=== PATIENT | female | born 1975 | race Caucasian/White ===

== ENCOUNTER 2016-11-30 19:19 | Emergency (ER) | payer OTHER ==
[~2016-11-30] VITALS: Ht 165.1 cm; Wt 72.3 kg
[~2016-11-30 19:19] MED LIST: ACET-171 PO; ALBU8.5H2 INHALATION; ALPR2TAB2 PO; CALC-3 PO; CYAN500 PO; DICY20TA33 PO; DIL4T PO; FENT1PAT7 TRANSDERM; GABA600T PO; HYDR50CA PO; IBUP200C11 PO; LEVO200T PO; LOPE2CAP PO; METO5SOL19 PO; OMEP20CA11 PO; ONDA8TAB7 PO; PRAZ2CAP2 PO; PROC-4 PO; PROM25TA14 PO; QUET200T PO
[2016-11-30 19:21] VITALS: BP 116/52; PULSE 56; RESP 17; O2SAT 100
--- NOTE | 2016-11-30 19:43 | ED.REPORT ---
HPI-Chest Pain 40 and Over Date of Service Nov 30, 2016 ED Provider: Dimitri Quinones DO Pt is a 41 year old female with a history of complex regional pain syndrome who presents to the ED via EMS complaining of intermittent and worsening chest pain onset 1 week ago. She c/o associated dizziness, fatigue, palpitations, nausea, and left lower extremity edema. Pt denies a history of blood clots in her left leg. The pt rates her pain as a 5/10, describing her chest pain as an "elephant sitting on [her] chest." Her last episode of chest pain was onset 1 hour ago, lasting 1 hour. Pt presented to urgent care with her symptoms and she was referred to the ED for further evaluation. Pt also expressed concern for a toenail on her left foot after dropping an object on it 2 months, stating that is is painful. Nursing Notes Stated Complaint: CHEST PAIN Chief Complaint: Chest Pain Nursing Notes Reviewed: Yes Allergies: Coded Allergies: morphine (Verified Allergy, Intermediate, 11/30/16) ms cotin tabs only IV okay Cephalexin Monohydrate (Verified Allergy, Unknown, HIVES, 11/30/16) HAS TAKEN AMOXICILLIN FINE cefepime (Verified Allergy, Unknown, NEUTROPENIA, 11/30/16) clindamycin (Verified Allergy, Unknown, THROAT CLOSURE, 11/30/16) fluconazole (Verified Allergy, Unknown, 11/30/16) Scheduled Calcium Carbonate/Vitamin D3 (Calcium 500+D Tablet Chew) 1 Each Tab.chew 1 EACH PO HS Cyanocobalamin (Vitamin B12) 1,000 Mcg Tablet 1,500 MCG PO DAILY Dicyclomine (Bentyl) 20 Mg Tablet 20 MG PO TID Fentanyl 25 mcg/hr Patch (Fentanyl 25 mcg/hr Patch) 1 Each Patch.td72 1 PATCH TRANSDERM Q3D Gabapentin (Neurontin) 600 Mg Tablet 2 TAB PO TID Hydromorphone (Dilaudid) 4 Mg Tablet 4 MG PO QID Ibuprofen (Advil) 200 Mg Capsule 800 MG PO TID Levothyroxine (Synthroid) 200 Mcg Tablet 400 MCG PO DAILY Metoclopramide (Metoclopramide) 5 Mg/5 Ml Solution 10 MG PO QID Omeprazole (Omeprazole) 20 Mg Capsule.dr 40 MG PO BID Ondansetron ODT (Zofran ODT) 8 Mg Tab.rapdis 8 MG PO QID Prazosin (Prazosin) 2 Mg Capsule 2 MG PO HS Prochlorperazine Maleate (Compazine) 10 Mg Tablet 10 MG PO QID Quetiapine Fumarate (Seroquel) 200 Mg Tablet 200 MG PO HS Scheduled PRN Acetaminophen (Acetaminophen) 500 Mg Tablet 1,000 MG PO Q6H PRN PRN For Pain Albuterol HFA (Proair HFA) 8.5 Gm Hfa.aer.ad 2 PUFFS INHALATION Q4H PRN PRN For Wheezing Alprazolam (Xanax) 2 Mg Tablet 2 MG PO HS PRN PRN For Anxiety Hydroxyzine Pamoate (Vistaril) 50 Mg Capsule 50 MG PO HS PRN PRN For Insomnia Loperamide (Loperamide) 2 Mg Capsule 4 MG PO Q4H PRN PRN For Diarrhea or Loose Stool Promethazine (Promethazine) 25 Mg Tablet 25 MG PO Q6H PRN PRN For Nausea General Time Seen by MD: 19:43 Chief Complaint Chest pain Hx Obtained From: Patient, EMS Arrived By: Ambulance Sudden in Onset?: No Onset Occurred: 1 week ago Symptom Duration: Since onset Quality: Painful Radiation: : Does not radiate Migration/Movement: Reports: None Severity: Current: Moderate Severity: Maximum: Moderate Recent Healthcare: Recent doctor visit Similar Sx Previous: No Past Medical History Past Medical History Notes: GI Dr. Irving Cannon at the [facility] [phone] Last admitted April 22 for COPD exacerbation, irritable bowel and chronic abdominal pain he abdomen and pelvis at that time feel decreased extension of colitis compared to March 2015 High utilizer of health care GHISLAINE profile reviewed Past Medical History IBS Colitis Severe PTSD Anxiety Depression Migraines Complex regional pain syndrome in left leg/left ankle Hardening of the arteries based off cath lab nurse results - per pt. Suicidal ideation Heart murmur Chronic Pain- followed [facility] in [place] Reports: Asthma, GERD Reports: Depression, Thyroid disease Past Surgical History Thyroidectomy Brie fundoplication Left ankle surgeries x 5 Colonoscopy Cardiac catheterization Endoscopy Reports: , Cholecystectomy, Hysterectomy Reports: Tubal ligation Family History Father of liver cancer Sister is bipolar with unknown heart disease Mother has multiple cancers and psychiatric diagnoses Reports: Cancer Smoking History Former Smoker Social History Alcohol Use: "Social" Drug Use: THC Other Social History: , Local resident Ambulatory Status Independent Review of Systems Constitutional: Reports: Fatigue, Denies: Fever Respiratory: Denies: Non-productive cough Cardiovascular: Reports: Chest pain, Palpitations GI: Reports: Nausea Musculoskeletal: Reports: Extremity swelling Neurologic: Reports: Dizziness Complete sys rev & neg: except as marked. Physical Exam Initial Vital Signs Vital Signs (First) Date Time Temp Pulse Resp B/P Pulse Ox O2 Delivery O2 Flow Rate FiO2 11/30/16 19:21 36.7 56 17 116/52 100 Room Air Initial VS: Reviewed Head / Eyes: Atraumatic, Normocephalic Neck: Supple, Full range of motion Skin: Warm, Dry, No cyanosis Neurologic: Alert, Oriented, Nonfocal Psychiatric: Mood/affect normal, Behavior normal General/Constitutional: Awake, Alert Respiratory / Chest: Atraumatic, Breath sounds NL, Breath sounds = bilat Cardiovascular: Heart rate NL, Regular rhythm, Heart sounds NL Abdomen: Atraumatic, Soft, Non-tender Lower Extremity / Pelvis / MS: Neurologic intact, Vascular intact Edema of left leg Interpretation & Diagnostics US VEINOUS LEG DUPLEX UNILATERAL, LEFT: IMPRESSION: No deep vein thrombosis of the left lower extremity. Dictated by: Elizabeth Finney M.D. on 11/30/2016 at 21:18 Lab Results Interpretation Result Diagram: 11/30/16203611/30/162036 Test 11/30/16 20:37 White Blood Count 8.1th/mm3 (3.8-10.1) Red Blood Count 3.56mil/mm3 (3.90-5.20) Hemoglobin 10.8g/dL (12.0-15.6) Hematocrit 32.2% (35.0-46.0) Mean Corpuscular Volume 90.4fL (81-100) Mean Corpuscular Hemoglobin 30.3pg (27.0-35.0) Mean Corpuscular Hemoglobin Concent 33.5% (32.0-37.0) Red Cell Distribution Width 13.9% (12.3-15.4) Platelet Count 252bil/L (150-400) Neutrophils (%) (Auto) 36.9% (40-74) Lymphocytes (%) (Auto) 51.0% (14-46) Monocytes (%) (Auto) 8.4% (4-12) Eosinophils (%) (Auto) 2.8% (0-5) Basophils (%) (Auto) 0.7% (0-3) D-Dimer 0.64mg/L FEU (<0.50) Sodium Level 138mEq/L (134-144) Potassium Level 3.9mEq/L (3.5-5.2) Chloride Level 102mEq/L (97-108) Carbon Dioxide Level 24mmol/L (18-29) Blood Urea Nitrogen 12mg/dL (6-24) Creatinine 0.41mg/dL (0.57-1.00) Estimat Glomerular Filtration Rate 244mL/min (>59) Glucose Level 90mg/dL (60-99) Calcium Level 8.4mg/dL (8.5-10.1) Magnesium Level 1.8mg/dL (1.6-2.6) Total Bilirubin 0.2mg/dL (0.0-1.2) Aspartate Amino Transf (AST/SGOT) 15U/L (0-50) Alanine Aminotransferase (ALT/SGPT) 11U/L (0-32) Alkaline Phosphatase 61U/L (25-150) Troponin T 0.010ug/L (0.0-0.011) Total Protein 6.0g/dL (6.4-8.4) Albumin 3.8g/dL (3.4-5.0) Hold Gu[place]upe Top Tube Received (Received) ECG Interpretation ECG Interpretation: Sinus rhythm with a rate of 55 Time: 19:37 Interpreted by: ED physician X-Ray Chest Interpretation Chest Xray Interpretation: IMPRESSION: No acute cardiopulmonary findings. Dictated by: Elizabeth Finney M.D. on 11/30/2016 at 20:26 View: Portable, 1 view Interpretation / Wet Read by: Interpret - Radiologist Re-Eval/Medical Decision Med Decision/Clinical Course Healthy 41-year-old female presents with palpitations, tachycardia and chest pain. She has a heart score that is 1. Normal EKG. D-dimer was elevated. Ultrasound of the left leg was negative for DVT. I recommended serial troponins and a CT Brenda Grijalva. She refused. She felt better after learning that her EKG was normal. She left AGAINST MEDICAL ADVICE. She was warned that pulmonary embolism has not been ruled out. Acute coronary syndrome has not been ruled out. Either of these could be life-threatening. I recommend very close outpatient follow-up. Source of Hx: Old records Time of Eval: 20:04 Re-Evaluation/Progress Note: Informed pt of ECG normality, heart score of 0, and plan for US to check for a blood clot. I also informed pt of plan to refer her to a claims adjuster supervisor for her toe. Pt understands and agrees with plan. All questions addressed. Time of Eval: 22:21 Re-Evaluation/Progress Note: Pt left without her discharge paperwork. Counseled Regarding: Diagnosis, Lab results, Need for follow-up, When/why to return to ED Discharge & Departure Primary Impression: Chest pain Chest pain type: unspecified Qualified Code: R07.9 - Chest pain, unspecified Additional Impression: D-dimer, elevated Disposition: Home Discharge Condition All VS Reviewed: Yes Condition: Stable Patient Instructions: Chest Pain (ED) Additional Instructions: The EKG was normal. The first set of cardiac enzymes is negative. There was no blood clots seen on the ultrasound. You do have an elevated d-dimer which could possibly mean that she did have a blood clot travel to your lungs. A CAT scan to rule this out is recommended. Your leaving prior to the completion of her workup. That being said do not hesitate to return if the pain returns or if he changes mind about the CAT scan. Either way set up a follow-up with her primary care physician tomorrow. I do recommend further evaluation and diagnostics including a CAT scan to completely rule out life-threatening illness as the cause of her chest pain. Referrals: Jose Barrientos MD (PCP) Tere Herrera DPM Scribe Attestation Portions of this note were transcribed by Phylicia Williamson. I, Dr. Quinones personally performed the history, physical exam and medical decision-making; I reviewed and confirmed the accuracy of the information in the transcribed note. Signed by : Kenton Stringer, 11/30/16. copies to: Jose Barrientos MD, Todd P DO Nov 30, 2016 19:43 Phylicia Yuan Nov 30, 2016 20:11
--- NOTE | 2016-11-30 20:28 | DRSVH ---
PROCEDURE: X-RAY CHEST ONE VIEW, PORTABLE ([id number]) INDICATIONS: chest pain TECHNIQUE: One view of the chest was acquired. COMPARISON: [facility], CR, XR CHEST 1VW (PORTABLE), 04/18/2015, 13:06. FINDINGS: Surgical changes and devices: None. Lungs and pleura: No pleural effusions or pneumothorax. Lungs are clear. Mediastinum: Mediastinal contours appear normal. Heart size is normal. Bones and chest wall: No suspicious bony lesions. Overlying soft tissues appear unremarkable. IMPRESSION: No acute cardiopulmonary findings. Dictated by: Elizabeth Finney M.D. on 11/30/2016 at 20:26 Approved by: Elizabeth Finney M.D. on 11/30/2016 at 20:26
[2016-11-30 20:59] LABS: BASOPHILS % (AUTO) 0.7 % (0-3); EOSINOPHILS % (AUTO) 2.8 % (0-5); MONOCYTES % (AUTO) 8.4 % (4-12); Mean Corpuscular Hemoglobin 30.3 pg (27.0-35.0); Mean Corpuscular Volume 90.4 fL (81-100); NEUTROPHILS % (AUTO) 36.9 % (40-74); Platelet Count 252 bil/L (150-400)
[2016-11-30 21:18] LABS: TROPONIN T 0.01 ug/L (0.0-0.011)
--- NOTE | 2016-11-30 21:20 | DRSVH ---
PROCEDURE: US VEINOUS LEG DUPLEX UNILATERAL, LEFT INDICATIONS: LEFT LEG SWELLING TECHNIQUE: Real-time imaging, as well as color and pulse Doppler interrogation, were performed of the lower extr emity deep veins from the inguinal ligament to the popliteal fossa. COMPARISON: None. FINDINGS: The deep veins are normally compressible, and free of intraluminal thrombus. Color and pu lse Doppler demonstrate normal phasic intraluminal flow. There is normal augmentation response to di stal compression maneuver. IMPRESSION: No deep vein thrombosis of the left lower extremity. Dictated by: Elizabeth Finney M.D. on 11/30/2016 at 21:18 Approved by: Elizabeth Finney M.D. on 11/30/2016 at 21:18
[2016-11-30 21:29] LABS: Magnesium 1.8 mg/dL (1.6-2.6)
== END 2016-11-30 22:13 ==
LOC: SED 19:19
DX: R07.9 Chest pain, unspecified (principal); R79.1 Abnormal coagulation profile; R42 Dizziness and giddiness; R53.83 Other fatigue; R00.2 Palpitations; R11.0 Nausea; R60.0 Localized edema; K21.9 Gastro-esophageal reflux disease without esophagitis; J45.909 Unspecified asthma, uncomplicated; F41.8 Other specified anxiety disorders; G43.909 Migraine, unspecified, not intractable, without status migrainosus; E07.9 Disorder of thyroid, unspecified; Z87.891 Personal history of nicotine dependence; Z90.710 Acquired absence of both cervix and uterus; Z88.1 Allergy status to other antibiotic agents; Z88.5 Allergy status to narcotic agent; Z88.8 Allergy status to other drugs, medicaments and biological substances